=== PATIENT | female | born 1945 | race Caucasian/White ===

== ENCOUNTER → 2017-07-19 | Outpatient (CLI) | payer OTHER, MEDICARE | LOC: FIMAGING 09:24 | PROVIDERS: ATTEND Internal Medicine | DX: Z12.31 Encounter for screening mammogram for malignant neoplasm of breast (principal) ==

== ENCOUNTER → 2018-08-15 | Outpatient (CLI) | payer OTHER, MEDICARE | LOC: FIMAGING 13:32 | PROVIDERS: ATTEND Internal Medicine | DX: Z12.31 Encounter for screening mammogram for malignant neoplasm of breast (principal); Z13.820 Encounter for screening for osteoporosis; M85.89 Other specified disorders of bone density and structure, multiple sites; Z78.0 Asymptomatic menopausal state ==

== ENCOUNTER → 2018-08-31 | Outpatient (CLI) | payer OTHER, MEDICARE | LOC: BMCIMAGING 14:04 | PROVIDERS: ATTEND Internal Medicine Rheumatology | DX: M19.041 Primary osteoarthritis, right hand (principal); M19.042 Primary osteoarthritis, left hand ==

== ENCOUNTER 2018-10-20 12:04 | Emergency (ER) | payer OTHER, MEDICARE ==
[2018-10-20 12:10] VITALS: BP 165/95
--- NOTE | 2018-10-20 12:28 | EDPHY ---
H & P Stated Complaint: sent from pcp get cardiac enzymes lab work, lt neck pain Time Seen by Provider: 10/20/18 12:28 HPI/ROS: CHIEF COMPLAINT: Referred to ED by primary care provider at [facility]iology for evaluation of transient trapezius muscle pain yesterday HISTORY OF PRESENT ILLNESS: The patient was riding her bicycle yesterday. She is quite active and rides frequently. She has no history of exertional chest pain or shortness of breath. In the middle of along ride yesterday she developed spasm in her left trapezius muscle that took some time to subside. She when she got off the bicycle and her pain relieved. She was bothered by palpitations and a slightly elevated resting heart rate throughout the night. The patient contacted her primary care provider who recommended she come to the emergency department for an EKG and troponin test. She has been asymptomatic today and has no complaints. The patient has no risk factors for coronary artery disease. She has no history of hypertension. She takes a statin every other day for very mild hyperlipidemia. The patient denies any anterior neck pain. She denies any include acute headache or focal numbness or weakness. REVIEW OF SYSTEMS: A comprehensive 10 point review of systems is otherwise negative aside from elements mentioned in the history of present illness. Source: Patient Exam Limitations: No limitations - Personal History Current Tetanus/Diphtheria Vaccine: Yes Current Tetanus Diphtheria and Acellular Pertussis (TDAP): Yes - Medical/Surgical History Hx Asthma: No Hx Chronic Respiratory Disease: No Hx Diabetes: No Hx Cardiac Disease: No Hx Renal Disease: No Hx Cirrhosis: No Hx Alcoholism: No Hx HIV/AIDS: No Hx Splenectomy or Spleen Trauma: No Other PMH: josseline knee replacement - Social History Smoking Status: Never smoked - Physical Exam Exam: General Appearance: Alert, no distress Eyes: Pupils equal and round no pallor or injection Neck: No palpable tenderness over carotid artery, no bruit ENT, Mouth: Mucous membranes moist Respiratory: There are no retractions, lungs are clear to auscultation Cardiovascular: Regular rate and rhythm Gastrointestinal: Abdomen is soft and nontender, no masses, bowel sounds normal Neurological: 5/5 strength noted all 4 extremities Skin: Warm and dry, no rashes Musculoskeletal: Neck is supple nontender Extremities: symmetrical, full range of motion Constitutional: Initial Vital Signs Temperature (C) 36.3 C 10/20/18 12:05 Heart Rate 64 10/20/18 12:05 Respiratory Rate 16 10/20/18 12:05 Blood Pressure 165/95 H 10/20/18 12:05 O2 Sat (%) 97 10/20/18 12:05 O2 Delivery Mode Room Air Allergies/Adverse Reactions: No Known Allergies Allergy (Unverified 10/20/18 12:10) Home Medications: Medication Instructions Recorded NK [No Known Home Meds] 10/20/18 Medical Decision Making - Diagnostics EKG Interpretation: EKG: Complete interpretation has been separately recorded in the [facility] archive. Summary impression: Sinus rhythm, rate 55, no ischemic changes noted ED Course/Re-evaluation: Patient presents the ED after an episode of trapezius muscle spasm yesterday. I do believe that is likely musculoskeletal symptoms that she had yesterday. She did have an EKG in the emergency department which demonstrates no evidence of ischemia. Her i-STAT troponin is normal. At this point time I do not feel that further workup is indicated as the patient is quite active without any history of exertional chest pain or shortness of breath. The patient is comfortable following up with her primary care provider at [place] as needed. She is been told to return to the emergency department for any markedly worsening symptoms, exertional symptoms, chest pain, recurrent neck pain or neurologic symptoms. Differential Diagnosis: Differential diagnosis considered includes myofascial spasm, myocardial infarction, unstable angina - Data Points Laboratory Results: 10/20/18 12:24 POC Troponin I 0.01 ng/mL ng/mL (0.00-0.08) Point of Care Test Results: Chemistry 10/20/18 12:24 POC Troponin I 0.01 ng/mL ng/mL (0.00-0.08) Departure - Departure Disposition: Home, Routine, Self-Care Clinical Impression: Trapezius strain Condition: Good Instructions: Musculoskeletal Pain (ED) Additional Instructions: 1. Your EKG and cardiac enzymes demonstrate no acute abnormality. 2. Please return to the ED for markedly worsening symptoms or other concerns. 3. Follow up with your regular physician as needed. Referrals: Maya Guzman MD [Primary Care Provider] - As per Instructions
--- NOTE | 2018-10-20 12:30 | CPEKG ---
Test Reason : OPEN Blood Pressure : / mmHG Vent. Rate : 055 BPM Atrial Rate : 054 BPM P-R Int : 147 ms QRS Dur : 099 ms QT Int : 445 ms P-R-T Axes : 066 -39 042 degrees QTc Int : 426 ms Sinus rhythm Left axis deviation Confirmed by Gustavo Cruz ([id number]) on 10/20/2018 12:30:03 PM Referred By: PHYSICIAN ED Confirmed By:Gustavo Cruz
[2018-10-20 12:57] LABS: PLATELET COUNT 289 10^3/uL (150-400)
== END 2018-10-20 12:52 | disposition home or self-care (01) ==
DX: M62.838 Other muscle spasm (principal)
CPT/HCPCS: 84484-ER